=== PATIENT | female | born 1995 | race Two or more races ===

== ENCOUNTER 2021-09-02 13:19 | Emergency (ER) | payer OTHER ==
[2021-09-02 14:09] VITALS: BP 104/67; PULSE 89; TEMP 98.3; BMI 17.6
== END 2021-09-02 18:27 | disposition home or self-care (01) ==
LOC: JER 13:19
DX: G43.109 Migraine with aura, not intractable, without status migrainosus (principal)
CPT/HCPCS: 70450-TC; 99284-25

== ENCOUNTER 2023-10-05 12:20 | Emergency (ER) | payer OTHER ==
[2023-10-05 12:27] VITALS: BP 121/74; PULSE 99; RESP 16; TEMP 97.7; BMI 25.7
[2023-10-05] MEDS ORDERED: METOCLOPRAMIDE HCL INJECTION 10 MG/2 ML VIAL ONE (13:03)
[2023-10-05] MEDS ORDERED: ACETAMINOPHEN INJECTION 100 ML IVPB ONE (13:03)
[2023-10-05] MEDS: METOCLOPRAMIDE HCL INJECTION 10 MG/2 ML VIAL IVPUSH ONE (13:24)
[2023-10-05] MEDS: SODIUM CHLORIDE 0.9% 500 ML INFUS.BAG IV ONE (13:24)
[2023-10-05] MEDS: ACETAMINOPHEN 1000 MG/100 ML BAG IVPB ONE (13:24)
[2023-10-05 13:27] LABS: BASO % 0.4 % (0-2.0); EOS % 0.3 % (0-4.5); HEMATOCRIT 43.9 % (32.4-45.2); LYMPH % 20.7 % (8-40); MCH 28.4 pg (25.7-33.7); MCHC 34.1 g/dl (32.0-36.0); MEAN CELL VOLUME 83.2 fl (80-96); MEAN PLT VOLUME 7.9 fl (7.5-11.1); MONO % 4.1 % (3.8-10.2); NEUT % 74.5 % (42.8-82.8); PLATELET COUNT 263 10^3/uL (134-434); RBC 5.28 M/mm3 (3.60-5.2); RDW 12.9 % (11.6-15.6); WHITE BLOOD COUNT 9.5 K/mm3 (4.0-10.0)
[2023-10-05 13:51] LABS: POTASSIUM 4.1 mmol/L (3.5-5.1)
[2023-10-05 13:52] LABS: ALBUMIN 4.2 g/dl (3.4-5.0); CALCIUM 9.1 mg/dL (8.5-10.1)
[2023-10-05 13:53] LABS: BLOOD UREA NITROGEN 9.9 mg/dL (7-18)
[2023-10-05 13:56] LABS: CREATININE 0.8 mg/dL (0.55-1.3)
[2023-10-05 13:58] LABS: TOT PROT 7.9 g/dl (6.4-8.2)
[2023-10-05 14:05] LABS: BILIRUBIN,TOTAL 1.9 mg/dL (0.2-1)
== END 2023-10-05 15:19 | disposition home or self-care (01) ==
LOC: JER 12:20
PROC: 3E033NZ Introduction of Analgesics, Hypnotics, Sedatives into Peripheral Vein, Percutaneous Approach (ICD-10-PCS; principal; 2023-10-05)
PROC: 3E033GC Introduction of Other Therapeutic Substance into Peripheral Vein, Percutaneous Approach (ICD-10-PCS; 2023-10-05)
DX: G43.109 Migraine with aura, not intractable, without status migrainosus (principal); R11.2 Nausea with vomiting, unspecified
CPT/HCPCS: 36415; 80053; 84703; 85025; 99284-25; J0131